=== PATIENT | male | born 1945 | race American Indian/Alaskan Native ===

== ENCOUNTER 2017-04-25 10:42 | Inpatient (IN) | payer MEDICARE, MEDICAID ==
[~2017-04-25 10:42] MED LIST: ANCEF/STERILE WATER 2 GM/20 ML IV NR; FLAGYL 500 MG/100 ML 500 MG/100 ML BAG IV NR; HEPARIN SUB-Q NR
--- NOTE | 2017-04-25 11:21 | Anesthesia Consultation ---
Anesthesia Consult and Med Hx Date of service: 04/25/17 - Airway Anesthetic Teeth Evaluation: Poor ROM Head & Neck: Adequate Mental/Hyoid Distance: Adequate Mallampati Class: Class II Intubation Access Assessment: Good - Pulmonary Exam CTA: Yes - Cardiac Exam Cardiac Exam: RRR - Pre-Operative Health Status ASA Pre-Surgery Classification: ASA3 Proposed Anesthetic Plan: General - Pulmonary Hx Smoking: Yes (/ PPD X30 YRS) Hx Sleep Apnea: No (MYKE PRE SCREEN HIGH RISK) - Cardiovascular System Hx Hypertension: Yes (2014) - Central Nervous System Hx Back Pain: Yes - Other Systems Hx Cancer: No
--- NOTE | 2017-04-25 11:22 | Anesthesia Day of Surgery ---
Anesthesia Day of Surgery - Day of Surgery Patient Examined: Yes Patient H&P Reviewed: Yes Patient is NPO: Yes
[2017-04-25] MEDS ORDERED: DILAUDID IV PRN ×3 (11:23→16:25)
[2017-04-25] MEDS ORDERED: NACL BACTERIOSTATIC INFILTRATI ONE (11:40)
[2017-04-25] MEDS: LACTATED RINGERS 1,000 ML IV SCH ×2 (11:45→23:53)
[2017-04-25] MEDS ORDERED: PEPCID PO NR (12:00)
[2017-04-25] MEDS ORDERED: VERSED IV NR (12:00)
[2017-04-25 12:05] LABS: Basophils % (Auto) 0.3 % (0.0-1.8); Eosinophils % (Auto) 0.8 % (0.0-4.3); Hemoglobin 14.7 gm/dl (11.8-15.2); Mean Corpuscular HGB Conc 33 % (32-34); Mean Corpuscular Hemoglobin 27 pg (28-32); Mean Corpuscular Volume 81 fl (84-94); Platelet Count 235 K/mm3 (140-440); Red Blood Count 5.43 M/mm3 (3.65-5.03); Red Cell Distribution Width 16.3 % (13.2-15.2); White Blood Count 12.1 K/mm3 (4.5-11.0)
[2017-04-25] MEDS ORDERED: FLAGYL 500 MG/100 ML 500 MG/100 ML BAG IV ONE (12:43)
[2017-04-25] MEDS ORDERED: ROBINUL ONE ×2 (12:49)
[2017-04-25] MEDS ORDERED: NEOSTIGMINE ONE (12:49)
[2017-04-25] MEDS ORDERED: ZEMURON IV ONE (12:49)
[2017-04-25] MEDS ORDERED: ZOFRAN ONE (12:49)
[2017-04-25] MEDS ORDERED: DECADRON ONE (12:49)
[2017-04-25] MEDS ORDERED: XYLOCAINE MPF 2% ONE (12:49)
[2017-04-25] MEDS ORDERED: DILAUDID ONE (12:49)
[2017-04-25] MEDS ORDERED: DIPRIVAN 10 MG/ML IV ONE (12:50)
[2017-04-25] MEDS ORDERED: SUBLIMAZE ONE (12:50)
[2017-04-25] MEDS ORDERED: FLAGYL 500 MG/100 ML 500 MG/100 ML BAG IV NR (13:00)
[2017-04-25] MEDS ORDERED: MARCAINE-EPI/PF 0.25%-1:200,000 INFILTRATI ONE ×5 (13:13→15:50)
[2017-04-25] MEDS ORDERED: NACL 0.9% IR ONE ×2 (14:14→15:00)
[2017-04-25] MEDS ORDERED: NEO SYNEPHRINE/NS Syringe(OR USE) IV ONE (15:00)
[2017-04-25] MEDS ORDERED: LACTATED RINGERS 1,000 ML ONE (15:02)
[2017-04-25] MEDS ORDERED: TYLENOL PO PRN (16:25)
[2017-04-25] MEDS ORDERED: ZOFRAN IV PRN (16:25)
--- NOTE | 2017-04-25 16:36 | Operative Report ---
Operative Report Operative Report: Date of procedure: 04/25/2017 Pre-operative diagnosis: Right colon tubulovillous adenoma Post-operative diagnosis: Same Procedure name(s): Laparoscopic right hemicolectomy Surgeon: Dominique Dela Cruz MD Assembly Leader: Juan Antoine M.D. Anesthesia: General, 0.25% Marcaine EBL: 50 mL Complications: None Instrument Count: Correct Indications: This is a 71-year-old male with a history of a recent colonoscopy where a polyp was noted in the right colon. This was not amenable to endoscopic removal and was biopsied and marked. 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 Because of his risk for malignant transformation he was offered the above-named procedure as a possible treatment modality. The risks and benefits discussed until all questions were answered. He was subsequently brought to the OR. Findings: Large heavy omentum Procedure: We reviewed the informed consent. The patient was then placed supine upon the table. After adequate anesthesia was reached. We verified the patient bilateral SCDs were placed, he was then prepped and draped in usual sterile fashion. We infiltrated local anesthetic at the level of the umbilicus. A 5 mm incision was made at this position. At this time a Veress in place we insufflated the abdomen to 15 mm mercury. A 5 mm port was placed, and the camera was introduced. We Briefly examined the abdomen, no injury was noted. We then placed a 5 mm port in the left upper quadrant and the right lower quadrant. These were placed under direct vision and after infiltration of local anesthetic. We identified the cecum noting the tattoo. There were adhesions in the right upper quadrant tenting up the right colon. We began our dissection along the right paracolic gutter. We identified the white line of Toldt and incised this using a Harmonic Scalpel. We carried dissection up to the level of the hepatic flexure and then mobilized the right colon medially, performing a medial rotation of the bowel. The omentum was dissected free from the right colon. It was also taken off of the anterior abdominal wall. We assured mobilization of the terminal ileum. At this time the right colon was deemed adequately mobilized. We extended the 5 mm umbilical incision both superiorly and inferiorly and placed a Redd wound protector. The right colon brought through the wound protector and transected at the level of the terminal ileum and the hepatic flexure using a MONICA 75 stapler. The mesentery was transected using a Harmonic Scalpel. The ileocolic vessels were clamped using a Anum clamp and ligated using a 0 silk tie x2. The specimen was then handed off the table and sent to pathology for further evaluation. We approximated the proximal and distal bowel using 3-0 silk stitches x3. We then created 2 enterotomies in each limb and placed a MONICA 75 stapler through the defects. The staple was fired creating the anastomosis. The common enterotomy was grasped with Allis clamps x4 and closed using a TA 60 stapler. Some oozing noted and at this time we placed the anastomosis back within the abdomen reinsufflated. A large clot was noted in the right upper quadrant on the posterior aspect of the anastomosis near the area of dissection. The clot was suctioned out and the area was closely monitored. No further bleeding was noted. Despite this we placed a piece of Surgicel on the posterior aspect of the anastomosis to aid in any further oozing. The wound protector was then removed. We then closed the fascia using 2 #1 PDS sutures in a running fashion. We reinsufflated the abdomen examining the anastomosis. It was noted to be tension-free. We then evacuated insufflation removed all ports, and close all port sites using a 4-0 Monocryl a symmetrical fashion. The bandage sterilely. The patient tolerated the procedure well, was awakened and transferred to PACU in no apparent distress.
[2017-04-25] MEDS ORDERED: TORADOL IV PRN (16:41)
--- NOTE | 2017-04-25 17:25 | Post Anesthesia Evaluation ---
- Post Anesthesia Evaluation Patient Participated: Yes Airway Patent: Yes Stable Respiratory Function: Yes Nausea/Vomiting: No Temp > 96.8F: Yes Pain Manageable: Yes Adequeate Hydration: Yes Anesthesia Complications: No
--- NOTE | 2017-04-26 12:01 | Admit Criteria Form ---
Admission Criteria Documentation: AMBULATORY SURGERY EXCEPTION CRITERIA Ambulatory Surgery Exception Criteria ( Place 'X' for any and all applicable criteria): Surgery or procedure performed on ambulatory basis may require inpatient stay for[A] ANY ONE of the following(1)(2)(3)(4)(5)(6)(7)(8)(9): [X] I. A preoperative situation, condition, or finding that warrants inpatient stay as indicated by ANY ONE of the following: [X] a) Inpatient care needed because of severity of a disease or condition rather than the surgery (eg, severe cardiac or respiratory disease, severe infection) (15) (16 ) (17) (18) [] b) Emergent procedure (eg, angioplasty for acute ischemia)(19) [] c) Complex surgical approach or situation as indicated by ANY ONE of the following(3): [] i) Open approach needed instead of usual endoscopic, transcatheter, or other less invasive procedure [] ii) Difficult approach because of previous operation [] iii) Airway monitoring required after open neck procedures(20)(21) [] iv) Large mass requiring unusually extensive dissection [] v) Additional complicating feature requiring inpatient care (eg, drain management)(22(23): [X] d) Major surgery in a pt with high anesthetic risk as indicated by ANY ONE of the following (2)(3)(5)(7)(8): [X] i) ASA risk class III or higher (severe systemic disease impairing function) [D] [] ii) Advanced age (eg, older than 85 years)(14)(24) [] iii) Symptomatic heart failure(25) [] iv) Symptomatic asthma or COPD(8)(21) [] v) Morbid obesity with hemodynamic or respiratory problems(20)( 21)(26)(27) [] vi) Obstructive sleep apnea(20)(21) [] vii) Former premature infants who are younger than 60 weeks [] viii) High risk for severe postoperative abnormalities (eg, severe postoperative hypocalcemia after parathyroidectomy for severe hyperparathyroidism)(27)( 28) [] ix) Unstable angina(25) [] e) Drug-related risk requiring inpatient stay as indicated by ANY ONE of the following(5)(10)(14)(32)(33) [] i) Procedure requires discontinuing drugs or other therapy (eg , antiarrhythmic medication, antiseizure medication), which necessitates inpatient observation or treatment.(18)(31) [] ii) Major surgery and high risk drug use as indicated by ANY ONE of the following: [] 1) Active abuse of cocaine or similar drug [] 2) Monoamine oxidase inhibitor use [] 3) Other drug identified as posing risk [] f) Inadequate outpatient care situation as indicated by ANY ONE of the following(5)(10)(14)(32)(33) [] i) Patient lives remote from medical facility and procedure has urgent complication potential, and temporary nearby residence cannot be arranged [] ii) Patient will have postprocedure incapacitation and inadequate assistance at home, or alternative level of care cannot be arranged. [] iii) Patient will have long general anesthesia or procedure side effect resolution time, and competent person to stay with patient on first postoperative night at home or alternative level of care cannot be arranged. []iv) Other inadequate outpatient situation that cannot be handled by other means [] II. A perioperative event, condition, or finding that warrants inpatient stay as indicated by ANY ONE of the following (1)(2)(3): [] a) Inadequate physiologic recovery: cardiovascular, respiratory, or hemodynamic status not normal or near preoperative baseline(18) [] b) Hemodynamic instability [] c) Patient not alert with near normal or baseline mental status [] d) Temperature not normal or as expected and not appropriate for outpatient treatment of condition [] e) Ambulatory or appropriate activity level status not yet achieved post procedure [E](34)(35)(36) [] f) Operative site not appropriate (eg, unexpected or excessive drainage or bleeding) [] g) Postoperative effects not resolved or adequately managed (eg, significant pain or vomiting not appropriate for outpatient or next level of care)(10)(12) [] h) Complicating features requiring inpatient care as indicated by ANY ONE of the following(37): [] i) Severe complications of procedure (eg, bowel injury, airway compromise, vascular injury,severe hemorrhage) [] ii) Extensive (eg, dissection far beyond usual scope of procedure ) or prolonged (eg, 120 minutes beyond usual) surgery needed requiring inpatient postoperative care [] iii) Conversion to an open or complex procedure that requires inpatient care (eg, open vs laparoscopic cholecystectomy, abdominal vs vaginal hysterectomy)(38) [] iv) Comorbid condition or test result identified during or post procedure that requires inpatient care (7) [] v) Malignant hyperthermia(30) [] vi) Other complicating feature requiring inpatient care(22)(23) Inpatient stay may be needed until ALL of the following are present (1)(2)(3)(4) (5)(6)(10)(14)(33)(40): []a) Physiologic recovery: cardiovascular, respiratory, and hemodynamic status normal or near preoperative baseline []b) Hemodynamic stability []c) Patient alert, with near normal or baseline mental status []d) Temperature appropriate: patient afebrile or temperature appropriate for outpt treatment of condition []e) Activity level appropriate: ambulatory or appropriate activity level post procedure []f) Operative site appropriate as indicated by ALL of the following: []i) Site dry or with expected drainage []ii) Any blood noted is as expected for procedure. []g) Postoperative effects resolved or managed as indicated by ALL of the following: []i) Pain management appropriate for outpatient (or next level of) care(10) []ii) Minimal nausea and vomiting: if present, successfully treated with oral medication(12) []iii) Headache, dizziness, or drowsiness (if present) are mild. []h) Voiding status acceptable as indicated by ANY ONE of the following: []i) Voiding spontaneously []ii) No voiding but instructions given for follow-up in 6 to 8 hours []iii) Urinary catheter in place, and instructions given for follow-up []i) Complicating features requiring inpatient care manageable at a lower level of care(37) []j) Comorbid conditions manageable at a lower level of care(37) The original [facility] content created by [employer] has been revised. The portions of the content which have been revised are identified through the use of italic text or in bold, and [facility] has neither reviewed nor approved the modified material. All other unmodified content is copyright [facility]. Please see references footnoted in the original [facility] edition 2016 Admission Criteria Met: Yes
--- NOTE | 2017-04-26 17:57 | Progress Note ---
Assessment and Plan Will advance to full liquid diet He has been cautioned that if he feels bloated or nausea in any way that he is not to eat or drink anything I encouraged ambulation and pulmonary toilet Continue IVF Check CBC in AM Subjective Date of service: 04/26/17 Patient Reports: Positive: no new complaints Objective Vital Signs - 12hr 04/26/17 04/26/17 04/26/17 07:00 11:30 15:55 Temperature 97.9 F 98.0 F 98.4 F Pulse Rate 104 H 100 H 92 H Respiratory 20 18 20 Rate Blood Pressure 149/88 139/79 153/88 O2 Sat by Pulse 91 96 Oximetry - Abdomen soft, not tender, not bowel sounds normal, distended, other (Incisions healing well) - Labs 04/25/17 11:40
[2017-04-26] MEDS: NACL 0.9% 1000 ML 1,000 ML IV SCH (22:00)
[2017-04-27 06:44] LABS: Hematocrit 38.2 % (35.5-45.6); Hemoglobin 12.8 gm/dl (11.8-15.2); Mean Corpuscular HGB Conc 33 % (32-34); Mean Corpuscular Hemoglobin 27 pg (28-32); Mean Corpuscular Volume 81 fl (84-94); Platelet Count 204 K/mm3 (140-440); Red Blood Count 4.72 M/mm3 (3.65-5.03); Red Cell Distribution Width 16.2 % (13.2-15.2); White Blood Count 15.2 K/mm3 (4.5-11.0)
[2017-04-27] MEDS: NACL 0.9% 1000 ML 1,000 ML IV SCH (11:20)
[2017-04-27 16:41] VITALS: BP 143/86
--- NOTE | 2017-04-27 16:41 | Discharge Summary ---
Providers - Providers Date of Admission: 04/25/17 16:25 Date of discharge: 04/27/17 Attending physician: RAFI ESPINOZA Primary care physician: JACLYN CODY Hospitalization Condition: Stable Procedures: lap rt hemicolectomy Hospital course: unremarkable Disposition: DC-01 TO HOME OR SELFCARE Core Measure Documentation - Palliative Care Palliative Care/ Comfort Measures: Not Applicable - Core Measures Any of the following diagnoses?: none Exam - Constitutional Vitals: Temp Pulse Resp BP Pulse Ox 97.9 F 100 H 18 130/86 95 04/27/17 07:30 04/27/17 10:00 04/27/17 10:00 04/27/17 07:30 04/27/17 00:08 General appearance: Present: no acute distress, well-nourished - Respiratory Respiratory effort: normal - Cardiovascular Rhythm: regular - Abdominal General gastrointestinal: Present: soft, non-tender, non-distended - Psychiatric Psychiatric: appropriate mood/affect, intact judgment & insight - Neurologic Neurologic: moves all extremities Plan Activity: advance as tolerated Diet: regular Wound: keep clean and dry Follow up with: JACLYN CODY MD [Primary Care Provider] - 7 Days RAFI ESPINOZA MD [Staff Physician] - 7 Days Prescriptions: oxyCODONE /ACETAMINOPHEN [Percocet 5/325] 1 tab PO Q6HR PRN #30 tablet PRN Reason: Pain
== END 2017-04-27 17:30 | disposition home or self-care (01) | DRG 331 ==
LOC: OR 10:42 → 3A 16:25 → 2B-SURG 18:21
PROVIDERS: ADMIT Surgery; ATTEND Surgery
PROC: 0DTF4ZZ Resection of Right Large Intestine, Percutaneous Endoscopic Approach (ICD-10-PCS; principal; 2017-04-25)
DX: D12.6 Benign neoplasm of colon, unspecified (principal)
CPT/HCPCS: 36415; 85025; 85027; 88307; 88309; 88342; A4217; J0690; J1100; J1170; J1644; J1885; J2250; J2370; J2405; J2704; J2710; J3010; J7030; J7120